=== PATIENT | female | born 1955 ===

== ENCOUNTER 2022-02-21 12:12 | Inpatient (IN) ==
--- NOTE | 2022-02-21 13:06 | Emergency Department Note ---
History of Present Illness General Chief complaint: Mental Health Evaluation Stated complaint: MENTAL HEALTH EVALUATION Time Seen by Provider: 02/21/22 12:43 Source: patient Mode of arrival: ambulatory Limitations: no limitations History of Present Illness This patient is a 66-year-old female has a history of depression and anxiety, comes in after having worsening of her symptoms and thoughts of hurting herself. She has had a lot of stressors as her son and his girlfriend are in [facility] because they have been using heroin. The grandkids are in foster care and this is caused her a lot of stress she has been crying uncontrollably she says she been self-medicating with alcohol. She drinks heavily and binges every 4 to 6 weeks. The last time which was about 3 weeks ago she took a couple Tylenol PM. She denies that she wanted to but she also said she she was hoping to be at peace and not wake up. She denies any homicidal ideations. She feels that she needs to get her mental health issues in mind in order. She had a gallbladder removed on Friday and is been healing well without any problems no fever chills no abdominal pain Home Medications Medication Instructions Recorded Confirmed Type meloxicam 15 mg tablet 15 mg PO QAM 02/13/22 02/18/22 History pantoprazole 40 mg tablet,delayed 40 mg PO QAM 02/13/22 02/18/22 History release oxycodone-acetaminophen 5 mg-325 1 tab PO Q6H PRN #10 tab 02/18/22 Rx mg tablet (Percocet) Allergies Allergy/AdvReac Type Severity Reaction Status Date / Time No Known Allergies Allergy Unverified 02/18/22 11:02 Past Med/Surg History Medical History GERD (gastroesophageal reflux disease) History of COVID-19 2019 and no residual effects Kidney stones monitoring Surgical History History of open reduction and internal fixation (ORIF) procedure left ankle Hx of cardiac cath 2020 end of year. finding was negative cardiac. was found to be her gallbladder was done at [facility]. Hx of hysterectomy Social History Smoking Status: Never smoker Second Hand Exposure: No; Hx Alcohol Use: No Hx Substance Use: No Preferred Language: Yoruba Communication Ability: Effective Cosmetologist Required: No Beliefs That Will Affect Care: None Current Living Situation: Spouse Feels Safe at Home: Yes Assistive Devices: Glasses Review of Systems A total of 10 systems reviewed and were otherwise negative Physical Exam Vital Signs Vital Signs - 24 hr 02/21/22 12:17 02/21/22 14:47 02/21/22 16:00 Temperature 36.2 C L Temperature Source Temporal Artery Scan Pulse Rate 121 H Pulse Rate [Right Finger] 87 89 Respiratory Rate 17 18 18 Respiratory Effort / Characteristics Non-Labored Non-Labored Non-Labored Respiratory Depth Normal Normal Respiratory Pattern Regular Blood Pressure 199/113 H Blood Pressure [Left Arm] 170/108 H 161/91 H Blood Pressure Mean 141 Blood Pressure Mean [Left Arm] 128 114 Blood Pressure Position [Left Arm] Sitting Pulse Oximetry 97 95 96 Oxygen Delivery Method Room Air Room Air Room Air Sepsis Recent Fever Within 48 Hours No Sepsis New/Unexplained Change in Mental Status N/A Sepsis Action Taken by Nursing No Action Required General: Well developed well nourished older female who appears in no acute distress, breathing comfortably on room air. Normal speech HEENT: Normal cephalic atraumatic. Pupils are equal round and reactive to light. Extraocular movements are intact. Oropharynx is pink with moist mucous membranes. No swelling of the mouth lips or tongue. Neck: Supple with a midline trachea. No meningeal signs or stiffness, no JVD or bruits. No Stridor. Chest: Clear to auscultation bilaterally. No wheezes or rhonchi. No increased work of breathing. Heart: Regular rate and rhythm without murmurs or gallops. Abdomen: Soft nontender, nondistended without rebound guarding or rigidity. Well-healing postop incisions from laparoscopic cholecystectomy Extremities: No cyanosis clubbing or edema. No calf tenderness or assymetry Spine/Back. Non tender to palpation. No CVA tenderness Skin: Good turgor without rashes. Neurologic exam: Cranial nerves two through 12 are intact. Motor and sensation are intact and symmetrical throughout. Psych: Normal affect and thought process. Course Administered Medications Discontinued Medications Potassium Chloride (Potassium Chloride 10 Meq Tabcr) 40 meq PO NOW STA Stop: 02/21/22 15:06 Last Admin: 02/21/22 15:46 Dose: 40 meq Documented by: [id number] Medical Decision Making Differential Diagnosis Depression, anxiety, toxicologic, metabolic, infectious Medical Records Attestation: I reviewed the patient's medical records. Home Medications Current Medication List: was personally reviewed by me Laboratory Data Attestation: I reviewed the patient's lab results. Result diagrams: 02/21/22 14:06 02/21/22 14:06 Lab Results 02/21/22 02/21/22 02/21/22 Range/Units 13:40 14:06 14:06 WBC 7.29 (4.8-10.8) K/uL RBC 4.89 (4.2-5.4) M/uL Hgb 15.5 (12.0-16.0) g/dL Hct 44.8 (37-47) % MCV 91.6 (80-100) fL MCH 31.7 (25-34) pg MCHC 34.6 (32-36) g/dL RDW Std Deviation 43.5 (36.4-46.3) fL RDW Coeff of Richy 13.0 (11.5-14.5) % Plt Count 255 (130-400) K/uL MPV 11.1 H (7.4-10.4) fL Immature Gran % (Auto) 0.3 % Neut % (Auto) 64.8 % Lymph % (Auto) 24.6 % Mclean % (Auto) 9.5 % Eos % (Auto) 0.5 % Baso % (Auto) 0.3 % Neut # (Auto) 4.73 (1.4-6.5) K/uL Lymph # (Auto) 1.79 (1.2-3.4) K/uL Mclean # (Auto) 0.69 H (0.11-0.59) K/uL Eos # (Auto) 0.04 (0-0.5) K/uL Baso # (Auto) 0.02 (0-0.2) K/uL Immature Gran # (Auto) 0.02 (0.00-0.02) K/uL Sodium 139 (136-145) mmol/L Potassium 3.3 L (3.5-5.1) mmol/L Chloride 104 (98-107) mmol/L Carbon Dioxide 27 (21-32) mmol/L Anion Gap 8 (3-11) BUN 20 (6-23) mg/dl Creatinine 0.83 (0.6-1.2) mg/dl Est Cr Clr Drug Dosing 69.6 ml/min Est GFR ( Amer) 85.8 ml/min Est GFR (Non-Af Amer) 74.0 ml/min BUN/Creatinine Ratio 24.1 H (10-20) Glucose 99 (70-99(Fasting)) mg/dl Calcium 10.2 H (8.5-10.1) mg/dl Total Bilirubin 0.6 (0.2-1.0) mg/dl AST 30 (13-39) U/L ALT 47 (7-52) U/L Alkaline Phosphatase 92 (34-104) U/L Total Protein 7.8 (6.0-8.3) gm/dl Albumin 4.5 (3.4-5.0) gm/dl Globulin 3.3 (2.5-4.0) gm/dl Albumin/Globulin Ratio 1.4 (0.9-2) TSH (0.300-4.500) uIu/ml Urine Color Urine Appearance (Clear) Urine pH (4.5-7.5) Ur Specific [place] (1.000-1.030) Urine Protein (Negative) Urine Glucose (UA) (Negative) Urine Ketones (Negative) Urine Blood (Negative) Urine Nitrite (Negative) Urine Bilirubin (Negative) Urine Urobilinogen (Negative) Ur Leukocyte Esterase (Negative) Urine WBC (Auto) (0-5) /hpf Urine RBC (Auto) (0-4) /hpf U Hyaline Cast (Auto) (0-5) /lpf U Epithel Cells (Auto) (0-5) /lpf Urine Bacteria (Auto) (Negative) Calcium Oxalate Crystal (None Prsent) Salicylates (3.0-30) mg/dl Urine Opiates Screen (Neg) Ur Methadone, Qual (Neg) Acetaminophen (10-30) ug/ml Urine Barbiturates (Neg) Ur Phencyclidine (PCP) (Neg) U Amphetamin/Meth Scrn (Neg) MDMA (Ecstasy) Screen (Neg) U Benzodiazepines Scrn (Neg) Ur Cocaine Metabolite (Neg) U Marijuana (THC) Screen (Neg) Ethyl Alcohol mg/dL (<10.0) mg/dl SARS-CoV-2, RNA, NAAT NEGATIVE (NEGATIVE) 02/21/22 02/21/22 02/21/22 Range/Units 14:06 14:06 14:06 WBC (4.8-10.8) K/uL RBC (4.2-5.4) M/uL Hgb (12.0-16.0) g/dL Hct (37-47) % MCV (80-100) fL MCH (25-34) pg MCHC (32-36) g/dL RDW Std Deviation (36.4-46.3) fL RDW Coeff of Richy (11.5-14.5) % Plt Count (130-400) K/uL MPV (7.4-10.4) fL Immature Gran % (Auto) % Neut % (Auto) % Lymph % (Auto) % Mclean % (Auto) % Eos % (Auto) % Baso % (Auto) % Neut # (Auto) (1.4-6.5) K/uL Lymph # (Auto) (1.2-3.4) K/uL Mclean # (Auto) (0.11-0.59) K/uL Eos # (Auto) (0-0.5) K/uL Baso # (Auto) (0-0.2) K/uL Immature Gran # (Auto) (0.00-0.02) K/uL Sodium (136-145) mmol/L Potassium (3.5-5.1) mmol/L Chloride (98-107) mmol/L Carbon Dioxide (21-32) mmol/L Anion Gap (3-11) BUN (6-23) mg/dl Creatinine (0.6-1.2) mg/dl Est Cr Clr Drug Dosing ml/min Est GFR ( Amer) ml/min Est GFR (Non-Af Amer) ml/min BUN/Creatinine Ratio (10-20) Glucose (70-99(Fasting)) mg/dl Calcium (8.5-10.1) mg/dl Total Bilirubin (0.2-1.0) mg/dl AST (13-39) U/L ALT (7-52) U/L Alkaline Phosphatase (34-104) U/L Total Protein (6.0-8.3) gm/dl Albumin (3.4-5.0) gm/dl Globulin (2.5-4.0) gm/dl Albumin/Globulin Ratio (0.9-2) TSH 0.628 (0.300-4.500) uIu/ml Urine Color Urine Appearance (Clear) Urine pH (4.5-7.5) Ur Specific [place] (1.000-1.030) Urine Protein (Negative) Urine Glucose (UA) (Negative) Urine Ketones (Negative) Urine Blood (Negative) Urine Nitrite (Negative) Urine Bilirubin (Negative) Urine Urobilinogen (Negative) Ur Leukocyte Esterase (Negative) Urine WBC (Auto) (0-5) /hpf Urine RBC (Auto) (0-4) /hpf U Hyaline Cast (Auto) (0-5) /lpf U Epithel Cells (Auto) (0-5) /lpf Urine Bacteria (Auto) (Negative) Calcium Oxalate Crystal (None Prsent) Salicylates < 3.0 L (3.0-30) mg/dl Urine Opiates Screen (Neg) Ur Methadone, Qual (Neg) Acetaminophen < 3 L (10-30) ug/ml Urine Barbiturates (Neg) Ur Phencyclidine (PCP) (Neg) U Amphetamin/Meth Scrn (Neg) MDMA (Ecstasy) Screen (Neg) U Benzodiazepines Scrn (Neg) Ur Cocaine Metabolite (Neg) U Marijuana (THC) Screen (Neg) Ethyl Alcohol mg/dL < 10.0 (<10.0) mg/dl SARS-CoV-2, RNA, NAAT (NEGATIVE) 02/21/22 02/21/22 Range/Units 15:00 15:00 WBC (4.8-10.8) K/uL RBC (4.2-5.4) M/uL Hgb (12.0-16.0) g/dL Hct (37-47) % MCV (80-100) fL MCH (25-34) pg MCHC (32-36) g/dL RDW Std Deviation (36.4-46.3) fL RDW Coeff of Richy (11.5-14.5) % Plt Count (130-400) K/uL MPV (7.4-10.4) fL Immature Gran % (Auto) % Neut % (Auto) % Lymph % (Auto) % Mclean % (Auto) % Eos % (Auto) % Baso % (Auto) % Neut # (Auto) (1.4-6.5) K/uL Lymph # (Auto) (1.2-3.4) K/uL Mclean # (Auto) (0.11-0.59) K/uL Eos # (Auto) (0-0.5) K/uL Baso # (Auto) (0-0.2) K/uL Immature Gran # (Auto) (0.00-0.02) K/uL Sodium (136-145) mmol/L Potassium (3.5-5.1) mmol/L Chloride (98-107) mmol/L Carbon Dioxide (21-32) mmol/L Anion Gap (3-11) BUN (6-23) mg/dl Creatinine (0.6-1.2) mg/dl Est Cr Clr Drug Dosing ml/min Est GFR ( Amer) ml/min Est GFR (Non-Af Amer) ml/min BUN/Creatinine Ratio (10-20) Glucose (70-99(Fasting)) mg/dl Calcium (8.5-10.1) mg/dl Total Bilirubin (0.2-1.0) mg/dl AST (13-39) U/L ALT (7-52) U/L Alkaline Phosphatase (34-104) U/L Total Protein (6.0-8.3) gm/dl Albumin (3.4-5.0) gm/dl Globulin (2.5-4.0) gm/dl Albumin/Globulin Ratio (0.9-2) TSH (0.300-4.500) uIu/ml Urine Color Dark Yellow Urine Appearance Cloudy A (Clear) Urine pH 5.5 (4.5-7.5) Ur Specific [place] 1.024 (1.000-1.030) Urine Protein 1+ H (Negative) Urine Glucose (UA) Negative (Negative) Urine Ketones Trace H (Negative) Urine Blood 2+ H (Negative) Urine Nitrite Positive A (Negative) Urine Bilirubin Negative (Negative) Urine Urobilinogen Negative (Negative) Ur Leukocyte Esterase 1+ H (Negative) Urine WBC (Auto) >30 H (0-5) /hpf Urine RBC (Auto) 10-30 H (0-4) /hpf U Hyaline Cast (Auto) 0 (0-5) /lpf U Epithel Cells (Auto) >30 H (0-5) /lpf Urine Bacteria (Auto) 4+ H (Negative) Calcium Oxalate Crystal Present A (None Prsent) Salicylates (3.0-30) mg/dl Urine Opiates Screen Neg (Neg) Ur Methadone, Qual Neg (Neg) Acetaminophen (10-30) ug/ml Urine Barbiturates Neg (Neg) Ur Phencyclidine (PCP) Neg (Neg) U Amphetamin/Meth Scrn Neg (Neg) MDMA (Ecstasy) Screen Neg (Neg) U Benzodiazepines Scrn Neg (Neg) Ur Cocaine Metabolite Neg (Neg) U Marijuana (THC) Screen Neg (Neg) Ethyl Alcohol mg/dL (<10.0) mg/dl SARS-CoV-2, RNA, NAAT (NEGATIVE) MDM Narrative This patient comes in as described above. She is here for treatment of her depression and anxiety and thoughts of hurting herself. Multiple blood testing was obtained for medical clearance she was further evaluated by psychiatric case folder. She was medically cleared. She has nothing suggest acute metabolic, infectious, toxicologic or other etiology for her symptoms. The exception to this is a mild hypokalemia and she was given p.o. potassium here 40 milliequivalents. She has been cooperative and feels he does need inpatient treatment. The case folder Carmen and I agree as well. We have made a referral to [facility] the patient will be signed out to Dr. Bonilla at shift change who will follow-up on the placement Impression & Plan Depression, Anxiety, Lab test negative for COVID-19 virus Discharge Plan Visit Data Chief Complaint: Mental Health Evaluation Stated Complaint: MENTAL HEALTH EVALUATION ED Provider: Seymour Meier Discharge Problem: Depression, Anxiety, Lab test negative for COVID-19 virus Forms Stand Alone Forms: [facility], Suicide Prevention Resources Prescriptions Prescriptions: No Action meloxicam 15 mg Tablet 15 mg PO QAM RF: 0 pantoprazole 40 mg Tablet,Delayed Release (Dr/Ec) 40 mg PO QAM RF: 0 oxycodone-acetaminophen [Percocet] 5-325 mg tablet 1 tab PO Q6H PRN (Reason: pain) Qty: 10 RF: 0 Referrals Referrals: Gabriel Linda MD [Primary Care Provider] - Discharge Problem: Depression Qualifiers: Depression Type: unspecified Qualified Code(s): F32.A - Depression, unspecified
[2022-02-21 14:27] LABS: Basophils # (auto) 0.02 K/uL (0-0.2); Basophils % (auto) 0.3 %; Eosinophils # (auto) 0.04 K/uL (0-0.5); Eosinophils % (auto) 0.5 %; Hematocrit (blood only) 44.8 % (37-47); Hemoglobin 15.5 g/dL (12.0-16.0); Immature Granulocytes # (auto) 0.02 K/uL (0.00-0.02); Immature Granulocytes % (auto) 0.3 %; Lymphocytes # (auto) 1.79 K/uL (1.2-3.4); Lymphocytes % (auto) 24.6 %; Mean Corpuscular Hemoglobin 31.7 pg (25-34); Mean Corpuscular Hgb Conc 34.6 g/dL (32-36); Mean Corpuscular Volume 91.6 fL (80-100); Mean Platelet Volume 11.1 fL (7.4-10.4); Monocytes # (auto) 0.69 K/uL (0.11-0.59); Monocytes % (auto) 9.5 %; Neutrophils # (auto) 4.73 K/uL (1.4-6.5); Neutrophils % (auto) 64.8 %; Platelet Count 255 K/uL (130-400); RDW Standard Deviation 43.5 fL (36.4-46.3); Red Blood Count 4.89 M/uL (4.2-5.4); White Blood Count 7.29 K/uL (4.8-10.8)
[2022-02-21 14:46] LABS: Acetaminophen < 3 ug/ml (10-30); Albumin Globulin Ratio 1.4 (0.9-2); Albumin Level 4.5 gm/dl (3.4-5.0); BUN Creatinine Ratio 24.1 (10-20); Bilirubin,Total 0.6 mg/dl (0.2-1.0); Calcium 10.2 mg/dl (8.5-10.1); Creatinine Clr Calc Pharmacy 69.6 ml/min; Est GFR (African American) 85.8 ml/min; Globulin 3.3 gm/dl (2.5-4.0); Potassium 3.3 mmol/L (3.5-5.1); Salicylate < 3.0 mg/dl (3.0-30); Total Protein 7.8 gm/dl (6.0-8.3)
[2022-02-21] MEDS ORDERED: POTASSIUM CHLORIDE 10 MEQ TABCR PO STA (15:05)
[2022-02-21 15:34] LABS: Appearance Urine Cloudy (Clear); Bacteria Urine Automated 4+ (Negative); Bilirubin Urine Negative (Negative); Blood Urine 2+ (Negative); Color Urine Dark Yellow; Epithelial Cell Urine Auto >30 /lpf (0-5); Glucose Urine UA Negative (Negative); Ketones Urine Trace (Negative); Leukocyte Esterase Urine 1+ (Negative); Nitrite Urine Positive (Negative); Protein Urine 1+ (Negative); Specific Gravity Urine 1.024 (1.000-1.030); Urobilinogen Urine Negative (Negative); WBC Urine Automated >30 /hpf (0-5); pH Urine 5.5 (4.5-7.5)
[2022-02-21 16:02] LABS: Calcium Oxalate Crystals Urine Present (None Prsent); Cast Urine Automated 0 /lpf (0-5)
[2022-02-21 16:16] LABS: Amphetamines+Metham, Urine Neg (Neg); Barbiturates, Urine Neg (Neg); Benzodiazepine, Urine Neg (Neg); Cocaine, Urine Neg (Neg); MDMA (Ecstacy), Urine Neg (Neg); Methadone, Urine Neg (Neg); Opiate, Urine Neg (Neg); Phencyclidine, Urine Neg (Neg)
[2022-02-21] MEDS ORDERED: ALUMINUM/MAGNESIUM SUSP 30 ML UDC PO PRN (17:22)
[2022-02-21] MEDS ORDERED: ACETAMINOPHEN 325 MG TAB PO PRN (17:22)
[2022-02-21] MEDS ORDERED: SODIUM CHLORIDE 0.65% NA SOLN 45 ML (OCEAN) PRN (17:22)
[2022-02-21] MEDS ORDERED: hydrOXYzine HCl 25 MG TAB PO PRN ×2 (17:22)
[2022-02-21] MEDS ORDERED: BISMUTH SUBSALICYLATE LIQD 236 ML PO PRN (17:22)
[2022-02-21] MEDS ORDERED: MAGNESIUM HYDROXIDE SUSP 30 ML UDC PO PRN (17:22)
--- NOTE | 2022-02-21 18:01 | Emergency Department Note ---
ED Visit Note This patient was signed out to me by Dr. Hua pending mental health evaluation. The patient is here for suicidal ideation and depression. She was medically cleared by Dr. Hua. [facility] did evaluate the patient and accepted her for inpatient psychiatric care. She did sign herself in voluntarily. I did sign the 201. . : Depression Qualifiers: Depression Type: unspecified Qualified Code(s): F32.A - Depression, unspecified
--- NOTE | 2022-02-22 09:22 | History & Physical ---
Date of Service February 22, 2022 Impression / Recommendations Impression The patient is a 66 year old woman who was admitted for worsening depression and SI with plan in the setting of multiple stressors including divorce, recent of her step-son, and incarceration of her son with her grandchildren now in [facility] custody who has been coping by drinking more alcohol. Diagnostically consistent with unspecified depression likely a combination of MDD with anxious distress as well as alcohol-induced depression as well as BROWN. The patient is deemed unstable and requires psychiatric hospitalization for diagnostic clarification, safety and stabilization, medication management and development of further coping skills. Discussed medication treatment options in detail. Discussed risks, benefits and alternatives including SSRIs and SNRIs. Patient would like to start and consented to velafaxine ER for MDD and BROWN and trazodone for insomnia. Reviewed side effects including but not limited to: GI, CAMPUZANO, sexual side effects, diaphoresis, HTN, sedation and orthostatic hypotension. The patient's audit score and use history suggests problematic substance use. Brief intervention was offered and accepted. Intervention was greater than 5 minutes in length and included assessing readiness to quit, advice on how to reduce or abstain and to set a specific goal for this hospitalization. squirrel worker will also assist in anticipating barriers to reducing or abstaining from substance use and in problem-solving for solutions to those problems while arranging for referral to appropriate treatment. The patient is in contemplative stage with regards to transtheoretical model of change. The patient is advised to decrease consumption due to depressant effects and risk of interaction with prescription medications. The patient agreed to and will be provided with recovery materials to continue to educate self on how to cope with their condition without using substances. (1) Recurrent severe major depressive disorder with anxiety: (2) Alcohol use disorder: 02/22/22: The patient was admitted to the [facility] ([facility] mental health unit) on q15 min checks (behavioral with suicide precautions) for safety. The patient will participate in group, recreational, and milieu therapies and will be offered additional individual and family sessions as clinically appropriate. -Effexor XR 37.5mg qd -trazodone 50mg qhs for insomnia -declines naltrexone, attends [facility] and this has been helpful Inventory Assets Strengths: motivated to get help, supportive friends, very involved in the community, trauma survivor Needs: safety and stabilization, medication adjustment, additional coping skills, increased outpatient services Suicide Risk Level Suicide Risk Level Comments: High-Moderate due to severe depression with SI with plan prior to admission but feels safe in the hospital, able to safety contract and agrees to let nursing/staff know should they develop plan, intent or feel unable to remain safe. Risk Factors Assessment : Yes Do You Have Access To A Gun?: No Mental Health Diagnoses: Yes Substance Use Disorders: Yes Previous Attempt: Yes Family History of Suicide: Yes Previous Psychiatric Hospitalization: No Hopelessness: Yes Protective Factors Assessment : No Employed: No Stable Relationships: Yes Supportive Family: Yes Psychiatric History Identifying Data ESTEBAN CACERES is a 66-year-old woman who currently lives in [place] alone, has a history of depression and anxiety, and was admitted on 02/21/22 17:22 on a 201 voluntary commitment for worsening depression and SI with plan of overdosing on medication and alcohol. Chief Complaint "It felt like too much". History of Present Illness Marlene presents for psychiatric admission for worsening depression and SI with plan of overdosing in the context of multiple psychosocial stressors including the recent of her step-son in Oct 2021, a pending divorce, the recent arrest of her son and his girlfriend with her grandchildren now in foster care and a cholecystectomy four days ago. She has a lot of difficult stress from watching what her grandchildren endured in the home due their parents substance use. She advocated repeatedly for her grandchildren to be removed from the home and finally they were in Oct 2021. She has been coping by binge drinking, generally every 4-6 weeks. She has not had any alcohol within the last 2.5 weeks and has no history of complicated withdrawals. About 3 weeks ago she was drinking more alcohol and mixed it with 7-8 tabs of Tylenol PM with knowledge of the potential deadly effects but with ambivalence about being alive and some hope that she may in her sleep from the combination. Yesterday she developed more intense and intrusive SI with plan of overdosing on medication and alcohol. She endorses depressive symptoms including tearfulness, anhedonia, decreased motivation, self-guilt, helplessness, hopelessness, decreased energy, eating smaller meals/snacking, and decreased sleep and taking tylenol pm for sleep onset insomnia but once asleep stays asleep. Passive SI for some time but since October it's become active SI and the last time I binged "I knew I would have killed myself if the right meds would have been in the house, I was done" but as she became sober she kept thinking of the grandchildren and feeling a sense of guilt. She knows she didn't do anything wrong and did as much as she could to protect her grandkids but now [facility] is only allowing her 2 hours of visits per month. She visited the grandchildren yesterday and after that had acutely increased SI. She also endorses symptoms of anxiety including generalized worries, shakiness, easily overwhelmed and one or two possible panic attacks in the last few days. She is not currently prescribed any psychiatric medications. Psychiatric ROS notable for no current nor history of symptoms of ksenia, p sychosis, PTSD, OCD nor eating disorder. Past Psychiatric History Current Psychiatric Diagnosis: MDD Outpatient Services: none; hx years ago with therapist possibly at [facility] Previous Psych Admissions: n/a Do You Have Access To A Gun?: No History of Previous Suicide Attempt: Yes Describe Attempts in the Past: OD from medicine cabinet at age 15 went to bed a nd fell asleep, ED ev Past Medication Trials: fluoxetine (been 3 years, was helpful), lexapro maybe, trazodone (helped) Past Head Trauma/Neuro History History of Concussion/Seizure: No Allergies Allergy/AdvReac Type Severity Reaction Status Date / Time No Known Allergies Allergy Verified 02/22/22 14:26 Family History Family History of: Depression (sister taking Effexor which has been helpful ), Anxiety, Alcoholism/Drug Abuse and Suicide Attempts Family Mental Health History Comment: Nephew- depression, completed suicide, Neice- murdered, substance use, Sister and Father- alcohol use d/o, Son- heroin use d/o Alcohol History Hx of Alcohol Use Over the Past 12 Months: Yes (Every 4-5 weeks binge drinking, last 2.5 weeks ago) AUDIT Total Score: 25 Past several months has been binge drinking. Would take 2-3 days when she could no longer cope and would just drink and wouldn't sleep or drink. Last time consumed about 2/5th of rum over 2-3 days prior to that 4-5 of large bottles of wine. No history of withdrawal symptoms. Smoking Use Have You Smoked or Used Tobacco Products in the Last 30 Days: No Smoking Status: Never smoker Substance History Hx of Prescription Med Misuse Over the Past 12 Months: No Hx of Over the Counter Med Misuse Over the Past 12 Months: Yes (took too much tylenol pm on two seperate occasions) Hx of Inhalent Misuse Over the Past 12 Months: No Hx of Organic Substance Use Over the Past 12 Months: No Hx of Illegal Substances/Street Drug Use Over Past 12 Months: No Problems as a Result of Past Substance Use: None Identified denies Personal History Living Arrangements: Home Childhood: Grew up in [place]. Her father is . Her mother is still living in a local snf. Has two sisters. Has a lot of good friends. Highest Grade Completed: High School Graduate Employment Status: Retired Marital Status: (pending, to be complete mid-March) Number Of Children: daughter 46, son 35 Beliefs That Will Affect Care: None Current Legal Problems: No Hx Legal Problems: No Hx Traumatic Life Events: Yes Patient History Medical History (Updated 02/22/22 @ 15:10 by Treva Ham MD) GERD (gastroesophageal reflux disease) History of COVID-19 2019 and no residual effects Kidney stones monitoring Surgical History (Updated 02/22/22 @ 15:09 by Treva Ham MD) History of open reduction and internal fixation (ORIF) procedure left ankle Hx of cardiac cath 2020 end of year. finding was negative cardiac. was found to be her gallbladder was done at [facility]. Hx of hysterectomy S/P cholecystectomy Social History Smoking Status: Never smoker Second Hand Exposure: No; Hx Alcohol Use: No Hx Substance Use: No Preferred Language: [place] Communication Ability: Effective Processing Mgr Required: No Beliefs That Will Affect Care: None Current Living Situation: Spouse Feels Safe at Home: Yes Assistive Devices: Glasses Assistive Devices Comment: Has a partial Review of Systems Review of Systems: All systems reviewed & are unremarkable except as noted in HPI & below Physical Exam Psychiatric: Orientation: alert and oriented x 3 Apperance: appropriately dressed and appropriately groomed Eye Contact: good eye contact Motor Behavior: no abnormal motor movements Speech: normal rate/rhythm/volume of speech Affect: + depressed affect, + anxious affect and + tearful affect Mood: + depressed mood and + anxious mood Thought Process: goal directed thought process Thought Content: reality based without delusions Suicidal Thoughts: denies suicidal thoughts (SI with plan prior to admission but denies now and feels safe here), denies suicidal plan and denies suicidal intent Homicidal Thoughts: denies homicidal thoughts Hallucinations: no auditory hallucinations and no visual hallucinations Cognition: recent memory grossly intact, remote memory grossly intact, attention grossly intact and language grossly intact Estimated Intelligence: consistent with education level Insight: + fair insight Judgement: + fair judgement Vital Signs (Past 24 Hours): Last Vital Signs Temp 36.9 C 02/22/22 06:51 Pulse 82 02/22/22 06:52 Resp 18 02/22/22 06:51 BP 127/83 02/22/22 06:52 Pulse Ox 96 02/21/22 16:00 Exam Statement: A physical exam was performed in the ED by Dr. Hua for the purposes of medical clearance. I accept that physical as correct and adequate for the purposes of the inpatient physical exam. Results & Data ([facility]) Laboratory Results Laboratory Results - last 24 hr 02/21/22 02/21/22 02/21/22 13:40 14:06 14:06 WBC 7.29 RBC 4.89 Hgb 15.5 Hct 44.8 MCV 91.6 MCH 31.7 MCHC 34.6 RDW Std Deviation 43.5 RDW Coeff of Richy 13.0 Plt Count 255 MPV 11.1 H Immature Gran % (Auto) 0.3 Neut % (Auto) 64.8 Lymph % (Auto) 24.6 [place] % (Auto) 9.5 Eos % (Auto) 0.5 Baso % (Auto) 0.3 Neut # (Auto) 4.73 Lymph # (Auto) 1.79 [place] # (Auto) 0.69 H Eos # (Auto) 0.04 Baso # (Auto) 0.02 Immature Gran # (Auto) 0.02 Sodium 139 Potassium 3.3 L Chloride 104 Carbon Dioxide 27 Anion Gap 8 BUN 20 Creatinine 0.83 Est Cr Clr Drug Dosing 69.6 Est GFR ( Amer) 85.8 Est GFR (Non-Af Amer) 74.0 BUN/Creatinine Ratio 24.1 H Glucose 99 Calcium 10.2 H Total Bilirubin 0.6 AST 30 ALT 47 Alkaline Phosphatase 92 Total Protein 7.8 Albumin 4.5 Globulin 3.3 Albumin/Globulin Ratio 1.4 TSH Urine Color Urine Appearance Urine pH Ur Specific [place] Urine Protein Urine Glucose (UA) Urine Ketones Urine Blood Urine Nitrite Urine Bilirubin Urine Urobilinogen Ur Leukocyte Esterase Urine WBC (Auto) Urine RBC (Auto) U Hyaline Cast (Auto) U Epithel Cells (Auto) Urine Bacteria (Auto) Calcium Oxalate Crystal Salicylates Urine Opiates Screen Ur Methadone, Qual Acetaminophen Urine Barbiturates Ur Phencyclidine (PCP) U Amphetamin/Meth Scrn MDMA (Ecstasy) Screen U Benzodiazepines Scrn Ur Cocaine Metabolite U Marijuana (THC) Screen Ethyl Alcohol mg/dL SARS-CoV-2, RNA, NAAT NEGATIVE 02/21/22 02/21/22 02/21/22 14:06 14:06 14:06 WBC RBC Hgb Hct MCV MCH MCHC RDW Std Deviation RDW Coeff of Richy Plt Count MPV Immature Gran % (Auto) Neut % (Auto) Lymph % (Auto) [place] % (Auto) Eos % (Auto) Baso % (Auto) Neut # (Auto) Lymph # (Auto) [place] # (Auto) Eos # (Auto) Baso # (Auto) Immature Gran # (Auto) Sodium Potassium Chloride Carbon Dioxide Anion Gap BUN Creatinine Est Cr Clr Drug Dosing Est GFR ( Amer) Est GFR (Non-Af Amer) BUN/Creatinine Ratio Glucose Calcium Total Bilirubin AST ALT Alkaline Phosphatase Total Protein Albumin Globulin Albumin/Globulin Ratio TSH 0.628 Urine Color Urine Appearance Urine pH Ur Specific [place] Urine Protein Urine Glucose (UA) Urine Ketones Urine Blood Urine Nitrite Urine Bilirubin Urine Urobilinogen Ur Leukocyte Esterase Urine WBC (Auto) Urine RBC (Auto) U Hyaline Cast (Auto) U Epithel Cells (Auto) Urine Bacteria (Auto) Calcium Oxalate Crystal Salicylates < 3.0 L Urine Opiates Screen Ur Methadone, Qual Acetaminophen < 3 L Urine Barbiturates Ur Phencyclidine (PCP) U Amphetamin/Meth Scrn MDMA (Ecstasy) Screen U Benzodiazepines Scrn Ur Cocaine Metabolite U Marijuana (THC) Screen Ethyl Alcohol mg/dL < 10.0 SARS-CoV-2, RNA, NAAT 02/21/22 02/21/22 15:00 15:00 WBC RBC Hgb Hct MCV MCH MCHC RDW Std Deviation RDW Coeff of Richy Plt Count MPV Immature Gran % (Auto) Neut % (Auto) Lymph % (Auto) [place] % (Auto) Eos % (Auto) Baso % (Auto) Neut # (Auto) Lymph # (Auto) [place] # (Auto) Eos # (Auto) Baso # (Auto) Immature Gran # (Auto) Sodium Potassium Chloride Carbon Dioxide Anion Gap BUN Creatinine Est Cr Clr Drug Dosing Est GFR ( Amer) Est GFR (Non-Af Amer) BUN/Creatinine Ratio Glucose Calcium Total Bilirubin AST ALT Alkaline Phosphatase Total Protein Albumin Globulin Albumin/Globulin Ratio TSH Urine Color Dark Yellow Urine Appearance Cloudy A Urine pH 5.5 Ur Specific [place] 1.024 Urine Protein 1+ H Urine Glucose (UA) Negative Urine Ketones Trace H Urine Blood 2+ H Urine Nitrite Positive A Urine Bilirubin Negative Urine Urobilinogen Negative Ur Leukocyte Esterase 1+ H Urine WBC (Auto) >30 H Urine RBC (Auto) 10-30 H U Hyaline Cast (Auto) 0 U Epithel Cells (Auto) >30 H Urine Bacteria (Auto) 4+ H Calcium Oxalate Crystal Present A Salicylates Urine Opiates Screen Neg Ur Methadone, Qual Neg Acetaminophen Urine Barbiturates Neg Ur Phencyclidine (PCP) Neg U Amphetamin/Meth Scrn Neg MDMA (Ecstasy) Screen Neg U Benzodiazepines Scrn Neg Ur Cocaine Metabolite Neg U Marijuana (THC) Screen Neg Ethyl Alcohol mg/dL SARS-CoV-2, RNA, NAAT Current Inpatient Medications Current Inpatient Medications: Current Inpatient Medications Acetaminophen (Acetaminophen 325 Mg Tab) 650 mg PO Q4H PRN PRN Reason: Headache or Minor Fever Stop: 03/23/22 17:21 Al Hydrox/Mg Hydrox/Simethicone (Aluminum/Magnesium Susp 30 Ml Udc) 30 ml PO Q4H PRN PRN Reason: GI Upset Stop: 03/23/22 17:21 Bismuth Subsalicylate (Bismuth Subsalicylate Liqd 236 Ml) 15 ml PO PRN PRN PRN Reason: Loose Stool Stop: 03/23/22 17:21 Hydroxyzine HCl (Hydroxyzine Hcl 25 Mg Tab) 50 mg PO HSZ PRN PRN Reason: Insomnia Stop: 03/23/22 17:21 Last Admin: 02/21/22 20:44 Dose: 50 mg Documented by: Hydroxyzine HCl (Hydroxyzine Hcl 25 Mg Tab) 25 mg PO Q4H PRN PRN Reason: Anxiety Stop: 03/23/22 17:21 Magnesium Hydroxide (Magnesium Hydroxide Susp 30 Ml Udc) 30 ml PO DAILY PRN PRN Reason: Constipation Stop: 03/23/22 17:21 Sodium Chloride (Sodium Chloride 0.65% Na Soln 45 Ml ([place])) 1 - 2 sprays NA PRN PRN PRN Reason: Nasal Dryness/Congestion Stop: 03/23/22 17:21
[2022-02-22] MEDS: traZODone HCL 50 MG TAB PO SCH (20:57)
[2022-02-23] MEDS ORDERED: VENLAFAXINE HCL XR 37.5 MG CAPXR PO SCH (09:00)
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
[2022-02-23] MEDS: traZODone HCL 50 MG TAB PO SCH (20:46)
[2022-02-24] MEDS: VENLAFAXINE HCL XR 75 MG CAPXR PO SCH (08:06)
--- NOTE | 2022-02-24 11:15 | Psychiatric Progress Note ---
Date of Service February 24, 2022 Impression / Recommendations Impression The patient is a 66 year old woman who was admitted for worsening depression and SI with plan in the setting of multiple stressors including divorce, recent of her step-son, and incarceration of her son with her grandchildren now in [facility] custody who has been coping by drinking more alcohol. Diagnostically consistent with unspecified depression likely a combination of MDD with anxious distress as well as alcohol-induced depression as well as BROWN. The patient is deemed unstable and requires psychiatric hospitalization for diagnostic clarification, safety and stabilization, medication management and development of further coping skills. As per Dr. Ham above. 02/24/22: improvement in insight, more future focussed but remains ambivalent around safety and quite anxious/quick to cry. (1) Recurrent severe major depressive disorder with anxiety: (2) Alcohol use disorder: 02/24/22: continue current meds and needs family meeting with a friend she would like to stay with when transitions out of hospital. Increase trazodone 100 mg po qhs. 02/23/22: increase Effexor to 75 mg po qam. 02/22/22: The patient was admitted to the [facility] ([facility]) on q15 min checks (behavioral with suicide precautions) for safety. The patient will participate in group, recreational, and milieu therapies and will be offered additional individual and family sessions as clinically appropriate. -Effexor XR 37.5mg qd -trazodone 50mg qhs for insomnia -declines naltrexone, attends [facility] and this has been helpful Inventory Assets Strengths: motivated to get help, supportive friends, very involved in the community, trauma survivor Needs: safety and stabilization, medication adjustment, additional coping skills, increased outpatient services Suicide Risk Level Suicide Risk Level Comments: High-Moderate due to severe depression with SI with plan prior to admission but feels safe in the hospital, able to safety contract and agrees to let nursi ng/staff know should they develop plan, intent or feel unable to remain safe. Risk Factors Assessment : Yes Do You Have Access To A Gun?: No Mental Health Diagnoses: Yes Substance Use Disorders: Yes Previous Attempt: Yes Family History of Suicide: Yes Previous Psychiatric Hospitalization: No Hopelessness: Yes Protective Factors Assessment : No Employed: No Stable Relationships: Yes Supportive Family: Yes Interval History Identifying Information ESTEBAN CACERES is a 66-year-old woman who currently lives in [place] alone, has a history of depression and anxiety, and was admitted on 02/21/22 17:22 on a 201 voluntary commitment for worsening depression and SI with plan of overdosing on medication and alcohol. Chief Complaint "I just feel for my granddaughter. That patient reminds me of my son.". Review of Systems Sleep Information Total Hours of Sleep: 7.75 Meal Information Percent Meal Consumed - Breakfast: 100 Percent Meal Consumed - Lunch: 85 Percent Meal Consumed - Dinner: 70 Subjective Subjective Patient was seen & assessed and interval progress reviewed with nursing and social work. No acute issues overnight. Remains unable to safety plan outside of the hospital despite future focus with regards to discharge planning. Tolerating Effexor XR. Reports still taking along time to fall asleep. Physical Exam Psychiatric Orientation: alert and oriented x 3 Apperance: appropriately dressed and appropriately groomed Eye Contact: good eye contact Motor Behavior: no abnormal motor movements Speech: normal rate/rhythm/volume of speech Affect: + depressed affect, + anxious affect and + tearful affect Mood: + depressed mood and + anxious mood Thought Process: goal directed thought process Thought Content: reality based without delusions Suicidal Thoughts: denies suicidal thoughts (SI with plan prior to admission but denies now and feels safe here), denies suicidal plan and denies suicidal intent Homicidal Thoughts: denies homicidal thoughts Hallucinations: no auditory hallucinations and no visual hallucinations Cognition: recent memory grossly intact, remote memory grossly intact, attention grossly intact and language grossly intact Estimated Intelligence: consistent with education level Insight: + fair insight Judgement: + fair judgement Vital Signs (Past 24 Hours) Last Vital Signs Temp 36.6 C 02/24/22 06:46 Pulse 83 02/24/22 06:47 Resp 18 02/24/22 06:46 BP 120/81 02/24/22 06:47 Pulse Ox 96 02/21/22 16:00 Results & Data ([facility]) Current Inpatient Medications Current Inpatient Medications: Current Inpatient Medications Acetaminophen (Acetaminophen 325 Mg Tab) 650 mg PO Q4H PRN PRN Reason: Headache or Minor Fever Stop: 03/23/22 17:21 Al Hydrox/Mg Hydrox/Simethicone (Aluminum/Magnesium Susp 30 Ml Udc) 30 ml PO Q4H PRN PRN Reason: GI Upset Stop: 03/23/22 17:21 Bismuth Subsalicylate (Bismuth Subsalicylate Liqd 236 Ml) 15 ml PO PRN PRN PRN Reason: Loose Stool Stop: 03/23/22 17:21 Hydroxyzine HCl (Hydroxyzine Hcl 25 Mg Tab) 50 mg PO HSZ PRN PRN Reason: Insomnia Stop: 03/23/22 17:21 Last Admin: 02/21/22 20:44 Dose: 50 mg Documented by: Hydroxyzine HCl (Hydroxyzine Hcl 25 Mg Tab) 25 mg PO Q4H PRN PRN Reason: Anxiety Stop: 03/23/22 17:21 Magnesium Hydroxide (Magnesium Hydroxide Susp 30 Ml Udc) 30 ml PO DAILY PRN PRN Reason: Constipation Stop: 03/23/22 17:21 Sodium Chloride (Sodium Chloride 0.65% Na Soln 45 Ml (Piatt)) 1 - 2 sprays NA PRN PRN PRN Reason: Nasal Dryness/Congestion Stop: 03/23/22 17:21 Trazodone HCl (Trazodone Hcl 100 Mg Tab) 100 mg PO HS JAY Stop: 03/26/22 21:59 Venlafaxine HCl (Venlafaxine Hcl Xr 75 Mg Capxr) 75 mg PO QAM JAY Stop: 03/26/22 08:59 Last Admin: 02/24/22 08:06 Dose: 75 mg Documented by: Mental Health & Subst Abuse Tx Therapist Name of Therapist: N/A Small Business Representative Name of Small Business Representative: N/A Post Discharge Appointments Primary Care Physician Name Of Family Doctor: Dr. Brian Avina
[2022-02-24] MEDS ORDERED: traZODone HCL 100 MG TAB PO SCH (22:00)
[2022-02-25] MEDS: VENLAFAXINE HCL XR 75 MG CAPXR PO SCH (09:04)
--- NOTE | 2022-02-25 10:26 | Discharge Summary ---
Date of Service February 25, 2022 History of Present Illness As per Dr. Ham on admission: Marlene presents for psychiatric admission for worsening depression and SI with plan of overdosing in the context of multiple psychosocial stressors including the recent of her step-son in Oct 2021, a pending divorce, the recent arrest of her son and his girlfriend with her grandchildren now in foster care and a cholecystectomy four days ago. She has a lot of difficult stress from watching what her grandchildren endured in the home due their parents substance use. She advocated repeatedly for her grandchildren to be removed from the home and finally they were in Oct 2021. She has been coping by binge drinking, generally every 4-6 weeks. She has not had any alcohol within the last 2.5 weeks and has no history of complicated withdrawals. About 3 weeks ago she was drinking more alcohol and mixed it with 7-8 tabs of Tylenol PM with knowledge of the potential deadly effects but with ambivalence about being alive and some hope that she may in her sleep from the combination. Yesterday she developed more intense and intrusive SI with plan of overdosing on medication and alcohol. She endorses depressive symptoms including tearfulness, anhedonia, decreased motivation, self-guilt, helplessness, hopelessness, decreased energy, eating smaller meals/snacking, and decreased sleep and taking tylenol pm for sleep onset insomnia but once asleep stays asleep. Passive SI for some time but since October it's become active SI and the last time I binged "I knew I would have killed myself if the right meds would have been in the house, I was done" but as she became sober she kept thinking of the grandchildren and feeling a sense of guilt. She knows she didn't do anything wrong and did as much as she could to protect her grandkids but now [facility] is only allowing her 2 hours of visits per month. She visited the grandchildren yesterday and after that had acutely increased SI. She also endorses symptoms of anxiety including generalized worries, shakiness, easily overwhelmed and one or two possible panic attacks in the last few days. She is not currently prescribed any psychiatric medications. Psychiatric ROS notable for no current nor history of symptoms of ksenia, psychosis, PTSD, OCD nor eating disorder. Physical Exam Psychiatric See admission H&P and DOD assessment. Vital Signs (Past 24 Hours) Last Vital Signs Temp 36.4 C L 02/25/22 06:38 Pulse 80 02/25/22 06:39 Resp 18 02/25/22 06:38 BP 120/67 02/25/22 06:39 Pulse Ox 96 02/21/22 16:00 Principal Diagnosis major depressive disorder Psychiatric Data See daily stay summary. In short, safety was maintained and the patient was cooperative with care. Medication changes included a trial of Effexor XR and trazodone and they tolerated this well. Her sleep was much improved. She preferred to continue forced titration of Effexor XR to 150 mg as she had no side effects. She agrees to contact unit for any treatment emergent issues before she sees her outpatient provider. A family session was held with her friend that she will be staying with on transition from the hospital and safety plan was completed prior to discharge. confirmed that her friend has already removed her old supplies of medication. She also agrees that friend will hold any new supply of medication if needed due to recurrent depressive thoughts. Day of Discharge Assessment Today the patient voices readiness for discharge. They note improvement in mood and deny thoughts to harm self or others. Thoughts remain organized and they are improved from admission. There is no evidence of psychosis. They agree to take mediations as prescribed and keep follow-up appointments. They are stable for discharge to outpatient level of care. Transition of Care Transition Of Care Record: was reviewed with the patient Advance Directives Advance Directives Information Provided: No Advance Directives: No Mental Health Advance Directive: No Advance Directives on File: No Living Will: No Power of Manager Salt: No Advance Directives Reason:: Declines as Mental Health Visit. Suicide Risk Level Suicide Risk Level Comments: Suicide risk at discharge is deemed low as the patient is no longer requiring 24-hr monitoring, has a safety plan, and is free of suicidal ideation at discharge. Risk Factors Assessment : Yes Do You Have Access To A Gun?: No Mental Health Diagnoses: Yes Substance Use Disorders: Yes Previous Attempt: Yes Family History of Suicide: Yes Previous Psychiatric Hospitalization: No Hopelessness: Yes Protective Factors Assessment : No Employed: No Stable Relationships: Yes Supportive Family: Yes Tobacco Cessation at Discharge Tobacco Cessation Medication Prescribed at Discharge: Not Applicable/Non-Smoker Total Time Total Time Spent: Greater Than 30 Minutes Total Time Includes: Examination of the patient, Discharge Planning and Medication Reconciliation Discharge Data Lab Results 02/21/22 02/21/22 02/21/22 13:40 14:06 14:06 WBC 7.29 RBC 4.89 Hgb 15.5 Hct 44.8 MCV 91.6 MCH 31.7 MCHC 34.6 RDW Std Deviation 43.5 RDW Coeff of Richy 13.0 Plt Count 255 MPV 11.1 H Immature Gran % (Auto) 0.3 Neut % (Auto) 64.8 Lymph % (Auto) 24.6 Traverse % (Auto) 9.5 Eos % (Auto) 0.5 Baso % (Auto) 0.3 Neut # (Auto) 4.73 Lymph # (Auto) 1.79 Traverse # (Auto) 0.69 H Eos # (Auto) 0.04 Baso # (Auto) 0.02 Immature Gran # (Auto) 0.02 Sodium 139 Potassium 3.3 L Chloride 104 Carbon Dioxide 27 Anion Gap 8 BUN 20 Creatinine 0.83 Est Cr Clr Drug Dosing 69.6 Est GFR ( Amer) 85.8 Est GFR (Non-Af Amer) 74.0 BUN/Creatinine Ratio 24.1 H Glucose 99 Calcium 10.2 H Total Bilirubin 0.6 AST 30 ALT 47 Alkaline Phosphatase 92 Total Protein 7.8 Albumin 4.5 Globulin 3.3 Albumin/Globulin Ratio 1.4 TSH Urine Color Urine Appearance Urine pH Ur Specific Payson Urine Protein Urine Glucose (UA) Urine Ketones Urine Blood Urine Nitrite Urine Bilirubin Urine Urobilinogen Ur Leukocyte Esterase Urine WBC (Auto) Urine RBC (Auto) U Hyaline Cast (Auto) U Epithel Cells (Auto) Urine Bacteria (Auto) Calcium Oxalate Crystal Salicylates Urine Opiates Screen Ur Methadone, Qual Acetaminophen Urine Barbiturates Ur Phencyclidine (PCP) U Amphetamin/Meth Scrn MDMA (Ecstasy) Screen U Benzodiazepines Scrn Ur Cocaine Metabolite U Marijuana (THC) Screen Ethyl Alcohol mg/dL SARS-CoV-2, RNA, NAAT NEGATIVE 02/21/22 02/21/22 02/21/22 14:06 14:06 14:06 WBC RBC Hgb Hct MCV MCH MCHC RDW Std Deviation RDW Coeff of Richy Plt Count MPV Immature Gran % (Auto) Neut % (Auto) Lymph % (Auto) Traverse % (Auto) Eos % (Auto) Baso % (Auto) Neut # (Auto) Lymph # (Auto) Traverse # (Auto) Eos # (Auto) Baso # (Auto) Immature Gran # (Auto) Sodium Potassium Chloride Carbon Dioxide Anion Gap BUN Creatinine Est Cr Clr Drug Dosing Est GFR ( Amer) Est GFR (Non-Af Amer) BUN/Creatinine Ratio Glucose Calcium Total Bilirubin AST ALT Alkaline Phosphatase Total Protein Albumin Globulin Albumin/Globulin Ratio TSH 0.628 Urine Color Urine Appearance Urine pH Ur Specific [place] Urine Protein Urine Glucose (UA) Urine Ketones Urine Blood Urine Nitrite Urine Bilirubin Urine Urobilinogen Ur Leukocyte Esterase Urine WBC (Auto) Urine RBC (Auto) U Hyaline Cast (Auto) U Epithel Cells (Auto) Urine Bacteria (Auto) Calcium Oxalate Crystal Salicylates < 3.0 L Urine Opiates Screen Ur Methadone, Qual Acetaminophen < 3 L Urine Barbiturates Ur Phencyclidine (PCP) U Amphetamin/Meth Scrn MDMA (Ecstasy) Screen U Benzodiazepines Scrn Ur Cocaine Metabolite U Marijuana (THC) Screen Ethyl Alcohol mg/dL < 10.0 SARS-CoV-2, RNA, NAAT 02/21/22 02/21/22 15:00 15:00 WBC RBC Hgb Hct MCV MCH MCHC RDW Std Deviation RDW Coeff of Richy Plt Count MPV Immature Gran % (Auto) Neut % (Auto) Lymph % (Auto) Traverse % (Auto) Eos % (Auto) Baso % (Auto) Neut # (Auto) Lymph # (Auto) Traverse # (Auto) Eos # (Auto) Baso # (Auto) Immature Gran # (Auto) Sodium Potassium Chloride Carbon Dioxide Anion Gap BUN Creatinine Est Cr Clr Drug Dosing Est GFR ( Amer) Est GFR (Non-Af Amer) BUN/Creatinine Ratio Glucose Calcium Total Bilirubin AST ALT Alkaline Phosphatase Total Protein Albumin Globulin Albumin/Globulin Ratio TSH Urine Color Dark Yellow Urine Appearance Cloudy A Urine pH 5.5 Ur Specific P[place] 1.024 Urine Protein 1+ H Urine Glucose (UA) Negative Urine Ketones Trace H Urine Blood 2+ H Urine Nitrite Positive A Urine Bilirubin Negative Urine Urobilinogen Negative Ur Leukocyte Esterase 1+ H Urine WBC (Auto) >30 H Urine RBC (Auto) 10-30 H U Hyaline Cast (Auto) 0 U Epithel Cells (Auto) >30 H Urine Bacteria (Auto) 4+ H Calcium Oxalate Crystal Present A Salicylates Urine Opiates Screen Neg Ur Methadone, Qual Neg Acetaminophen Urine Barbiturates Neg Ur Phencyclidine (PCP) Neg U Amphetamin/Meth Scrn Neg MDMA (Ecstasy) Screen Neg U Benzodiazepines Scrn Neg Ur Cocaine Metabolite Neg U Marijuana (THC) Screen Neg Ethyl Alcohol mg/dL SARS-CoV-2, RNA, NAAT Hospital Course (1) Recurrent severe major depressive disorder with anxiety: 02/24/22: continue current meds and needs family meeting with a friend she would like to stay with when transitions out of hospital. Increase trazodone 100 mg po qhs. 02/23/22: increase Effexor to 75 mg po qam. 02/22/22: The patient was admitted to the [facility] ([facility] mental [facility] unit) on q15 min checks (behavioral with suicide precautions) for safety. The patient will participate in group, recreational, and milieu therapies and will be offered additional individual and family sessions as clinically appropriate. -Effexor XR 37.5mg qd -trazodone 50mg qhs for insomnia -declines naltrexone, attends [facility] and this has been helpful Mental Health & Subst Abuse Tx Psychiatrist Name of Psychiatrist: will see PCP Therapist Name of Therapist: N/A Travel Nurse Name of Travel Nurse: N/A Post Discharge Appointments Primary Care Physician Name Of Family Doctor: Dr. Brian Avina Primary Care Date of Appointment with PCP: 03/01/22 Time of Appointment with PCP: 10:45 a.m Provider Appointment Comment: [address], [place] [address] Smoking Cessation Counseling Tobacco Cessation Medication Prescribed at Discharge: Not Applicable/Non-Smoker Discharge Plan Discharge Items Patient Disposition: Home - Self-Care Reason For Visit: MAJOR DEPRESSIVE DISORDER Discharge Diagnosis: major depressive disorder Activity: Resume your previous activity Non-emergency contact: Primary Care Provider, Psychiatrist and Therapist Call non-emergency contact if: you have any medication questions and your symptoms worsen Follow-up/Referrals: Gabriel Linda MD [Primary Care Provider] - Diet: Regular Addtl Attending Provider Instructions: SPECIAL CARE INSTRUCTIONS: 1. Follow through with your scheduled aftercare appointments. If unable to keep an appointment, please call to reschedule. 2. Take your medication only as prescribed. Medication should not be changed or stopped without the approval of your doctor. In the event of worsening symptoms or concerns about side effects, contact your doctor immediately. 3. Utilize new healthy coping skills, anger management skills, and stress management skills learned during your hospitalization. Journal feelings and process them with a support person. Identify stressors or situations that may result in relapse, deterioration or inappropriate behaviors and develop a plan to deal with those issues. 4. If your coping skills are ineffective and you are in crisis, contact your outpatient providers for direction. If unable to reach your providers, please call the [facility] CRISIS LINE AT , go to the [facility] walk-in center at [address], [address], [place], or go to the closest Emergency Room. 5. Avoid alcohol and un-prescribed drugs. 6. You have been provided with the Mental Health Advance Directives Pamphlet for your review. 7. Your condition is stable for discharge to outpatient level of care, but recovery is an ongoing process. Ifthoughts to harm yourself or others return, follow the safety plan developed during your stay. Planning for a safe return home includes securing weapons. Our treatment team recommends weaponsbe removed from the home until your outpatient provider reassesses your progress. In rare cases where the items themselvescannot be removed, guns and ammunitionshould be secured separatelyand keys stored by a reliable personoutside of the home. If you were admitted on an involuntary commitment, the police or other legal authorities may be involved in this process. AFTERCARE APPOINTMENTS: * Please call your insurance company prior to your scheduled appointment to confirm your aftercare providers are covered. Take your insurance information to your appointments. WHO TO CALL AND WHEN: Medical Emergencies: For questions or emergencies related to your hospital stay, please contact the Inpatient Behavioral Health Unit at [phone]. A field operations coordinator is on-call 07/04 for the Behavioral Health Unit for emergencies At any time you feel your situation is an emergency, you may also call 911 immediately. Pending Studies at Discharge: No Stand-Alone Forms: [facility] [employer], Smoking Cessation Medications and DC Order Prescriptions: New trazodone 100 mg Tablet 100 mg PO HS 30 Days Qty: 30 RF: 0 venlafaxine 150 mg capsule,extended release 24hr 150 mg PO QAM 30 Days Qty: 30 RF: 0 Discharge Orders: Discharge Order (Routine); Ordered 02/25/22 Ordered By: Noris Lemus Admission Data Admit Date/Time: 02/21/22 17:22 Attending Provider: Noris Lemus Admit Provider: Treva Ham Primary Care Provider: Gabriel Linda Other Interventions: Discharge Summary Assessment (RN) Last Done: 02/25/22 11:30 PSY Interdisciplinary Discharge Planning Last Done: 02/25/22 11:30 Coding Level of Care Code 60404 D/C day mgmt > 30 min Diagnoses Recurrent severe major depressive disorder with anxiety F33.2; F41.9
== END 2022-02-25 11:48 | disposition home or self-care (01) | DRG 885 ==
LOC: ED 12:12 → SUATTDRO 17:22 → 3S 17:22